=== PATIENT | female | born 1950 | race Caucasian/White ===

== ENCOUNTER 2024-10-01 12:32 | Emergency (ER) | payer MEDICARE, MEDICAID ==
[2024-10-01] MEDS ORDERED: Sodium Chloride 0.9% 10 ML Syringe FLUSH PRN (12:48)
[2024-10-01 13:03] LABS: HEMATOCRIT 47.8 % (34.2-48.2); MEAN CORPUSCULAR HEMOGLOBIN 29.6 pg (23.9-33.9); MEAN CORPUSCULAR HGB CONC 33.5 g/dL (31.9-34.8); MEAN CORPUSCULAR VOLUME 88.3 fL (76.7-100.5); MEAN PLATELET VOLUME 8.6 fL (7.1-12.4); PLATELET COUNT,PLT 376 x10(3)uL (151-488); RED BLOOD CELL COUNT 5.41 x10(6)uL (3.60-5.20); RED CELL DISTRIBUTION WIDTH 13.9 % (12.3-16.5); WHITE BLOOD CELL COUNT,WBC 23.9 x10-3/uL (3.0-10.3)
[2024-10-01 13:05] LABS: BLOOD UREA NITROGEN,BUN 17 mg/dL (7-18); BUN/CREATININE RATIO 14.2 (9-20); CARBON DIOXIDE,CO2 33 mmol/L (21-32); CHLORIDE,CL 93 mmol/L (100-110); CREATININE 1.2 mg/dL (0.55-1.02); ESTIMATED GFR 48 mL/min (>60); GLUCOSE RANDOM 158 mg/dL (80-116); POTASSIUM,K 4.6 mmol/L (3.5-5.3); SODIUM,NA 133 mmol/L (135-145)
[2024-10-01 13:11] LABS: A/G RATIO 0.6; ALANINE AMINOTRANSFERASE,ALT 26 U/L (12-36); ALBUMIN 3.3 g/dL (3.2-4.6); ALKALINE PHOSPHATASE 150 IU/L (56-112); ASPARTATE AMNIOTRANSFERASE,AST 37 IU/L (5-25); BILIRUBIN TOTAL 0.4 mg/dL (0.1-1.3); MAGNESIUM 1.7 mg/dL (1.8-2.5); PROTEIN TOTAL,TP 8.6 g/dL (6.0-8.0)
[2024-10-01 13:12] LABS: BASE EXCESS VENOUS,POC 4 mmol/L (-2 - 3+); PCO2 VENOUS,POC 56 mmHg (41-51); PH VENOUS,POC 7.36 pH Units (7.32-7.43)
[2024-10-01 13:14] LABS: C-REACTIVE PROTEIN 0.68 mg/dL (<0.50)
[2024-10-01 13:17] LABS: TROPONIN I 979.3 pg/mL (4.0-60.3)
[2024-10-01] MEDS: Labetalol 20 MG/4 ML Syringe IVPUSH ONE (13:32)
[2024-10-01] MEDS: Aspirin 81 MG Tab.Chew PO ONE (13:37)
[2024-10-01] MEDS: Sodium Chloride 0.9% 1,000 ML IV SCH (13:37)
[2024-10-01] MEDS ORDERED: Sodium Chloride 0.9% 1,000 ML IV SCH (13:45)
[2024-10-01 13:46] LABS: BAND PERCENT MAN 4 % (0-6); LYMPHOCYTES PERCENT MAN 7 % (13-37); MONOCYTES PERCENT MAN 1 % (4-12); SEG NEUTROPHILS PERCENT MAN 84 % (46-82)
[2024-10-01 13:47] LABS: EOSINOPHILS PERCENT MAN 4 % (0-5)
[2024-10-01] MEDS: Sodium Chloride 0.9% 500 ML IV ONE ×2 (14:00→14:53)
[2024-10-01 14:28] LABS: BILIRUBIN,URINE NEGATIVE (NEGATIVE); GLUCOSE,URINE NORMAL (NORMAL); KETONES,URINE NEGATIVE (NEGATIVE); LEUKOCYTE ESTERASE,URINE MODERATE (NEGATIVE); NITRITE,URINE POSITIVE (NEGATIVE); OCCULT BLOOD,URINE NEGATIVE (NEGATIVE); PROTEIN,URINE NEGATIVE (NEGATIVE); UROBILINOGEN,URINE NORMAL (NEGATIVE)
[2024-10-01] MEDS: Iopamidol 755 Mg/ML 100 ML Bottle IV SCH (14:30)
[2024-10-01 14:37] LABS: APPEARANCE,URINE CLOUDY (CLEAR); COLOR,URINE YELLOW (YELLOW)
[2024-10-01 14:43] LABS: RBC,URINE 0-5 (0-5)
[2024-10-01 14:44] LABS: BACTERIA,URINE MANY (NS); SQUAMOUS EPITHELIAL CELLS,UR FEW (NS,R,O)
[2024-10-01] MEDS: Labetalol 20 MG/4 ML Syringe IVPUSH PRN ×2 (15:01→16:47)
[2024-10-01] MEDS: cefTRIAXone 2 GM Vial IVPUSH ONE (15:57)
[2024-10-01] MEDS: Ondansetron 4 MG/2 ML SDV IVPUSH ONE (15:57)
[2024-10-01 17:38] LABS: BASE EXCESS ARTERIAL,POC 5 mmol/L (-2 - 3+); HCO3 ARTERIAL,POC 35 mmol/L (21-28); O2 SATURATION ARTERIAL,POC 90.7 % (94-98); PO2 ARTERIAL,POC 72 mmHg (83-108)
[2024-10-01] MEDS: Albuterol/Ipratropium 3.0-0.5 MG/3 ML Neb Soln NEB ONE (17:49)
[2024-10-01] MEDS: Lidocaine 2% HCl 6 ML Jel ONE ×2 (18:15→18:30)
[2024-10-01] MEDS: Nitroglycerin/D5W 25 MG/250 ML BOTTLE IV SCH (18:41)
[2024-10-01] MEDS: LORazepam 2 MG/ML SDV IVPUSH ONE (18:44)
[2024-10-01 20:20] LABS: BASE EXCESS VENOUS,POC 3 mmol/L (-2 - 3+); PCO2 VENOUS,POC 62 mmHg (41-51); PH VENOUS,POC 7.32 pH Units (7.32-7.43)
[2024-10-01 21:04] VITALS: BP 132/75; PULSE 86
== END 2024-10-01 21:00 ==
LOC: FB.ED 12:32
DX: I21.4 Non-ST elevation (NSTEMI) myocardial infarction (principal); J96.01 Acute respiratory failure with hypoxia; J96.02 Acute respiratory failure with hypercapnia; I72.9 Aneurysm of unspecified site; I87.1 Compression of vein; G93.40 Encephalopathy, unspecified; I10 Essential (primary) hypertension; F17.200 Nicotine dependence, unspecified, uncomplicated; E78.00 Pure hypercholesterolemia, unspecified; Z88.8 Allergy status to other drugs, medicaments and biological substances; Z79.890 Hormone replacement therapy
CPT/HCPCS: 36415; 51702; 70450; 71045; 71275; 80053; 81001; 82550; 82803; 83605; 83735; 84484; 85025; 86140; 87040; 87086; 87088; 87186; 87428-QW; 93005; 93010; 94640; 96361; 96365; 96366; 96375; 96376; 99285; 99285-25; A9270-GY; J0696; J1920; J2060; J2305; J2405; J7030; J7040; Q9967